=== PATIENT | female | born 1995 | race Two or more races ===

== ENCOUNTER 2021-02-23 12:44 | Emergency (ER) | payer OTHER ==
[~2021-02-23] VITALS: Ht 165.1 cm; Wt 83.9 kg
[2021-02-23 14:50] VITALS: BP 116/87
== END 2021-02-23 14:56 | disposition home or self-care (01) ==
LOC: ER 12:44
DX: R07.89 Other chest pain (principal); T50.Z95A Adverse effect of other vaccines and biological substances, initial encounter; Y92.89 Other specified places as the place of occurrence of the external cause
CPT/HCPCS: 93005